=== PATIENT | male | born 1970 | race Caucasian/White ===

== ENCOUNTER 2017-08-22 08:35 | Observation (INO) | payer BC, OTHER ==
[2017-08-22] MEDS ORDERED: LIDOCAINE 1% 2 ML INJ ID PRN (11:50)
[2017-08-22] MEDS ORDERED: LR 1,000 ML IV ONE (11:50)
[2017-08-22] MEDS ORDERED: MIDAZOLAM 2 MG/2 ML VIAL IVP ONE (12:17)
--- NOTE | 2017-08-22 12:19 | PDANEPAE ---
ANE History of Present Illness TRACI s/f tonsillectomy and SMIRT ANE Past Medical History - Cardiovascular History Hx Hypertension: No Hx Arrhythmias: No Hx Chest Pain: No Hx Coronary Artery / Peripheral Vascular Disease: No Hx CHF / Valvular Disease: No Hx Palpitations: No - Pulmonary History Hx COPD: No Hx Asthma/Reactive Airway Disease: No Hx Recent Upper Respiratory Infection: No Hx Oxygen in Use at Home: No Hx Sleep Apnea: Yes Sleep Apnea Screening Result - Last Documented: Positive Pulmonary History Comment: traci positive- uses oral appliance currently - Neurologic History Hx Cerebrovascular Accident: No Hx Seizures: No Hx Dementia: No - Endocrine History Hx Diabetes: No - Renal History Hx Renal Disorders: No - Liver History Hx Hepatic Disorders: No - Neurological & Psychiatric Hx Hx Neurological and Psychiatric Disorders: No - Cancer History Hx Cancer: No - Congenital Disorder History Hx Congenital Disorders: No - GI History Hx Gastrointestinal Disorders: Yes Gastrointestinal History Comment: recent heartburn issues - Other Health History Other Health History: wears reading glasses. dry skin - Chronic Pain History Chronic Pain: No (intermittent back pain) - Surgical History Prior Surgeries: septoplasty at 17 yo. acl replacement- left knee 05/2016 ANE Review of Systems Review of Systems: - Exercise capacity METS (RN): 5 METS ANE Patient History - Allergies Allergies/Adverse Reactions: oxycodone Allergy (Verified 08/14/17 14:47) Vomiting - Home Medications Home medications: home medication list seen and reviewed Home Medications: Calcium Carbonate [Tums 500MG (*)] 500 - 1,000 mg PO Q6 PRN 08/14/17 [Last Taken 08/15/17] Ibuprofen [Motrin (*)] 400 - 600 mg PO DAILY PRN 08/14/17 [Last Taken 08/15/17] Melatonin [Melatonin 3 MG (*)] 3 mg PO HS 08/14/17 [Last Taken 08/15/17] Multivitamins [Multivitamin (*)] 1 each PO DAILY 08/14/17 [Last Taken 08/15/17] Naproxen Sodium [Aleve 220 MG (*)] 220 mg PO BID PRN 08/14/17 [Last Taken ] - NPO status NPO Status: no food or drink >8 hours NPO Since - Liquids (Date): 08/22/17 NPO Since - Liquids (Time): 07:00 NPO Since - Solids (Date): 08/21/17 NPO Since - Solids (Time): 18:30 - Anes Hx Anes Hx: post operative nausea - Smoking Hx Smoking Status: Never smoked - Alcohol Use Alcohol Use: Rarely - Family Anes Hx Family Anes Hx: none Family Hx Anesthesia Complications: none ANE Labs/Vital Signs - Vital Signs Blood Pressure: 132/94 Heart Rate: 62 Respiratory Rate: 16 O2 Sat (%): 98 Height: 180.34 cm Weight: 70.307 kg ANE Physical Exam - Airway Mallampati Score: Class 1 Mouth exam: normal dental/mouth exam - Pulmonary Pulmonary: no respiratory distress - Cardiovascular Cardiovascular: regular rate and rhythym - ASA Status ASA Status: II ANE Anesthesia Plan Anesthesia Plan: general endotracheal anesthesia
[2017-08-22] MEDS ORDERED: BACITRACIN ZINC 14.2 GM OINTTUBE TP ONE (12:42)
[2017-08-22] MEDS ORDERED: LIDOCAINE 1% 300 MG/30 ML SDV ONE (12:42)
[2017-08-22] MEDS ORDERED: BUPIVACAINE 0.25% 30 ML SDV ONE (12:42)
[2017-08-22] MEDS ORDERED: OXYMETAZOLINE 30 ML NASAL SPRAY ONE ×2 (12:42→12:43)
--- NOTE | 2017-08-22 12:43 | PDHPUP ---
History & Physical Update H&P update statement: This history and physical update is based on an assessment of the patient which was completed after admission or registration (within 24 hours), but prior to the surgery/procedure.
[2017-08-22] MEDS ORDERED: ONDANSETRON 4 MG/2 ML VIAL ONE (12:51)
[2017-08-22] MEDS ORDERED: fentaNYL 100 MCG/2 ML INJ ONE (12:51)
[2017-08-22] MEDS ORDERED: DEXAMETHASONE 4 MG/ML VIAL ONE ×2 (12:51)
[2017-08-22] MEDS ORDERED: PROPOFOL/EMULSION 500 MG/50 ML BOTTLE IV ONE (12:51)
[2017-08-22] MEDS ORDERED: REMIFENTANIL HCL 1 MG VIAL ONE (12:51)
[2017-08-22] MEDS ORDERED: LIDOCAINE 2% 100 MG/5 ML SYR ONE (12:52)
[2017-08-22] MEDS ORDERED: LIDOCAINE HCL 160 MG/4 ML LTA KIT TP ONE (12:55)
[2017-08-22] MEDS ORDERED: METOCLOPRAMIDE 10 MG/2 ML VIAL IVP PRN (14:00)
[2017-08-22] MEDS ORDERED: ONDANSETRON 4 MG/2 ML VIAL IVP PRN (14:00)
[2017-08-22] MEDS ORDERED: MEPERIDINE 25 MG/ML SYR IVP PRN (14:00)
[2017-08-22] MEDS ORDERED: PHENYLEPHRINE HCL 100 MCG/ML SYR IVP PRN (14:00)
[2017-08-22] MEDS ORDERED: PROMETHAZINE HCL 25 MG/ML INJ IVP PRN (14:00)
[2017-08-22] MEDS ORDERED: ALBUTEROL 3 ML DEYVIAL IH PRN (14:00)
[2017-08-22] MEDS ORDERED: HYDROCODONE/APAP 5/325 TAB PO PRN (14:00)
[2017-08-22] MEDS ORDERED: DEXAMETHASONE 4 MG/ML VIAL IVP PRN (14:00)
[2017-08-22] MEDS ORDERED: NALOXONE HCL 0.4 MG/ML INJ IVP PRN (14:00)
[2017-08-22] MEDS ORDERED: ACETAMINOPHEN 500 MG TAB PO PRN (14:00)
[2017-08-22] MEDS ORDERED: fentaNYL 100 MCG/2 ML INJ IVP PRN (14:00)
[2017-08-22] MEDS ORDERED: OXYCODONE/APAP 5/325 TAB PO PRN (14:00)
[2017-08-22] MEDS ORDERED: LABETALOL HCL 5 MG/ML 20 ML MDV IVP PRN (14:00)
[2017-08-22] MEDS ORDERED: D5W LR 1,000 ML IV SCH (14:30)
[2017-08-22] MEDS: HYDROCOD/APAP 7.5/325 IN 15ML UDCUP PO PRN ×2 (17:26→22:25)
[2017-08-23] MEDS: HYDROCOD/APAP 7.5/325 IN 15ML UDCUP PO PRN ×2 (02:18→06:23)
[2017-08-23 04:30] VITALS: RESP 16; O2SAT 93
--- NOTE | 2017-08-23 05:10 | GOP ---
[f rep st] OPERATIVE REPORT DATE OF OPERATION: 08/22/2017 SURGEON: Davi De MD ANESTHESIA: General. PREOPERATIVE DIAGNOSIS: 1. Tonsillar hyperplasia. 2. Inferior turbinate hyperplasia. 3. Obstructive sleep apnea syndrome. POSTOPERATIVE DIAGNOSIS: 1. Tonsillar hyperplasia. 2. Inferior turbinate hyperplasia. 3. Obstructive sleep apnea syndrome. PROCEDURE PERFORMED: 1. Tonsillectomy. 2. Bilateral submucous resection of the inferior turbinates. FINDINGS: Large tonsils with deep crypts. In the left mid tonsillar fossa, there was an oozing vess el which was oversewn with a gijeny-li-eugce 3-0 chromic suture. The inferior turbinates were enlarg ed. SPECIMENS: Tonsils. ESTIMATED BLOOD LOSS: 30 mL. INDICATIONS: The patient is a 46-year-old man with obstructive sleep apnea syndrome, and complaints of chronic nasal congestion for years. He has tried and failed medical therapy. He has also failed CPAP. He presents for tonsillectomy and turbinate reduction in hopes of improving his sleep. DESCRIPTION OF PROCEDURE: Patient was taken to the OR, positively identified, placed on monitors, an d general anesthesia was induced. The table was then turned 90 degrees. The patient was placed in a supine position with a shoulder roll and head drape. The Caio mouth gag was used to visualize the oropharynx. He was placed in suspension. The peritonsillar tissues were then infiltrated on either side with 1.5 cc of 0.25% Marcaine with 1:200,000 epinephrine. The tonsils were then removed using a combination of suction monopolar electrocautery at a cutting setting of 1 and a coag setting of 15, and a Coblation wand at an ablation setting of 7 and a coagulation setting of 5. Following removal o f the tonsils, in the left mid tonsillar fossa there was a small oozing vessel, which I oversewed wit h a coyljh-jq-bdopo 3-0 chromic suture with good hemostasis. The gag was then released for 7 minutes and reopened. There was no further bleeding. A further 1 cc of the Marcaine with epinephrine was i nfiltrated in the same fashion, with care being taken not to inject it intravascularly. Attention was now turned to the nose. The inferior turbinates were infiltrated bilaterally with 3 cc of 1% lidocaine with 1:100,000 epinephrine. A stab incision was made at the anterior edge of both t he inferior turbinates. The soft tissue was elevated off the turbinate bone with a Dickerson elevator. This was debulked bilaterally, saving the overlying mucosa and some of the submucosal tissue to preve nt atrophic rhinitis. At this point, Afrin-soaked pledgets were placed on either side of the nose an d strings were tied and taped to the cheek. The case was then terminated and the anesthetic disconti nued. The patient tolerated the procedure well. COMPLICATIONS: None. Copy requested to: Dr. Cristhian Valdivia /[id number]/MODL
[2017-08-23 07:19] VITALS: BP 125/70; PULSE 88; TEMP 98.5
--- NOTE | 2017-08-23 07:40 | SOAPPROG ---
SOAP Progress Note Assessment/Plan: Assessment: The pt is doing well. He is currently on the liquid Lortab, and is afraid that the percocet will give him nausea. We will therefore try a combination of the hycet (liquid Lortab) and an oxycocdone tablet for breakthrough pain. He has the other scripts at home. Plan: Discharge home with followup in one week 08/23/17 07:37 Subjective: Pt slept poorly last night. He did not have any desaturation issues according to the RN. He denies nausea. Objective: Vital Signs Temp Pulse Resp BP Pulse Ox 36.9 C 88 16 125/70 H 93 08/23/17 07:17 08/23/17 07:17 08/23/17 07:17 08/23/17 07:17 08/23/17 07:17 08/22/17 08/23/17 08/24/17 05:59 05:59 05:59 Intake Total 4159 Output Total 2375 Balance 1784 Nasal packs removed and no bleeding was noted. ICD10 Worksheet Patient Problems: Problems Problem Status Onset Sleep apnea in adult Acute - ICD10 Problem Qualifiers (1) Sleep apnea in adult
--- NOTE | 2017-08-23 09:08 | PDDCSUM ---
Discharge Summary Discharge Summary: Subjective: This 46 year old male was admitted for surgery on 08/22/17 for tonsillectomy and bilateral submucous resection of the inferior turbinates by Dr. De for obstructive sleep apnea, turbinate hypertrophy and tonsillar hypertrophy. He was then admitted for observation through 08/23/17. He is doing well, notes pain controlled by hycet and dilaudid for breakthrough pain. He is breathing well, drinking okay, notes some discomfort swallowing. Denies bleeding. Objective: Patient is alert, oriented. Vital sings stable. Normocephalic, atraumatic. Breathing without issues. Tonsillar eschar bilaterally with no bleeding. Nasal pledgets removed with minimal bleeding. Exam otherwise normal. Assessment/Plan: 46 year old POD #1 s/p tonsillectomy and bilateral submucous resection of the inferior turbinates by Dr. De. He is doing well. Rx for hycet and dilaudid given to patient. Recommend Afrin twice daily x 1 week. Nasal saline spray q1 hour while awake. Follow up as scheduled in 1 week. Patient was evaluated by Dr. De
--- NOTE | 2017-08-23 15:47 | ASDISCHSUM ---
Discharge Information Plan Status:Home with No Needs Medically Cleared to Leave: Discharge Date:08/23/2017 10:35 AM CM D/C Disposition:Home, Routine, Self-Care ADT D/C Disposition:Home, Routine, Self-Care Projected Discharge Date:08/23/2017 10:35 AM Transportation at D/C: Discharge Delay Reason: Follow-Up Date:08/23/2017 10:35 AM Discharge Slot: Final Diagnosis: Placement Information Patient Contact Information Contact Name:RALPH Relationship: Address:[address] City:[place] [facility] [place] [facility] Phone: [facility]/Zip Code:[place] [address] Email: Financial Information Financial Class:HMO and PPO Plans Primary Plan Desc: [employer] Primary Plan Number:[id number] Secondary Plan Desc: Secondary Plan Number: Assessment Information Intervention Information
== END 2017-08-23 10:35 | disposition home or self-care (01) ==
LOC: F3E 10:52
PROVIDERS: ADMIT Otolaryngology; ATTEND Otolaryngology
PROC: 0CTPXZZ Resection of Tonsils, External Approach (ICD-10-PCS; principal; 2017-08-22 12:30)
PROC: 09TL7ZZ Resection of Nasal Turbinate, Via Natural or Artificial Opening (ICD-10-PCS; principal; 2017-08-22 12:30)
DX: J35.1 Hypertrophy of tonsils (principal); J34.3 Hypertrophy of nasal turbinates; G47.33 Obstructive sleep apnea (adult) (pediatric)
CPT/HCPCS: 30140; 42826; G0378; J0171; J1100; J2001; J2250; J2370; J2405; J2704; J3010

== ENCOUNTER → 2017-11-14 | Outpatient (CLI) | payer OTHER | LOC: FIMAGING 13:21 | PROVIDERS: ATTEND Orthopaedic Surgery Hand Surgery | DX: S52.592A Other fractures of lower end of left radius, initial encounter for closed fracture (principal) ==